=== PATIENT | female | born 1980 | race Caucasian/White ===

== ENCOUNTER → 2019-04-25 11:39 | Outpatient (BNVA) | payer OTHER, SELFPAY | PROVIDERS: Family Provider Registered Nurse; PCP Family Medicine; Visit Provider Nurse Practitioner | DX: J09.X2 Influenza due to identified novel influenza A virus with other respiratory manifestations (principal) | CPT/HCPCS: 87804 ==

== ENCOUNTER 2019-06-11 11:53 | Outpatient (CLI) | payer OTHER, SELFPAY ==
[2019-06-11 12:28] VITALS: BMI 26.2
--- NOTE | 2019-06-11 12:28 | ECG_ITS ---
NAME OF STUDY: TREADMILL STRESS TEST INDICATION: Chest Pain EXERCISE DATA: The patient was exercised by Mehdi protocol. Baseline heart rate was 74 beats per minute. Baseline blood pressure was 130/96 millimeters of mercury. Target heart rate was 179 beats per minute. Maximum heart rate achieved was 160, which was 89 % of the target heart rate. Maximum blood pressure was 187/103 millimeters of mercury. Total exercise time was 6 minutes 57 seconds. Maximum METs achieved was 10.2, maximum VO2 was 35.7. The reason for ending the test was maximum effort achieved. The patient complained of shortness of breath during the stress test, which then resolved at the end of the test. ELECTROCARDIOGRAM: BASELINE: Sinus rhythm, normal axis, no significant ST-T changes at the baseline noted. EXERCISE: At the peak exercise level, No significant ST-T changes suggestive of ischemia noted. RECOVERY: During the recovery period, heart rate dropped appropriately. No significant ST-T changes in the recovery suggestive of ischemia noted. CONCLUSION: 1. Exercise capacity fair . 2. Heart rate response was appropriate. 3. Blood pressure response was appropriate. 4. Symptoms not suggestive of ischemia. 5. Electrocardiogram portion of the stress test was not suggestive of ischemia. Electronically Signed On 06-13-2019 21:46:03 BRICKLAYER by Aimee Malik M.D. [email or web address]
[2019-06-11 12:44] VITALS: BP 167/95; PULSE 100
== END 2019-06-11 11:54 | disposition home or self-care (01) ==
LOC: CDL 11:55
PROVIDERS: Family Provider Registered Nurse; PCP Registered Nurse; Visit Provider Internal Medicine Cardiovascular Disease
DX: R07.9 Chest pain, unspecified (principal)
CPT/HCPCS: 93017

== ENCOUNTER 2019-09-28 08:11 | Outpatient (CLI) | payer OTHER, SELFPAY ==
--- NOTE | 2019-09-28 08:18 | MM_ITS ---
WS: [id number] SCREENING DIGITAL MAMMOGRAM WITH CAD HISTORY: SCREENING COMPARISON: None available. Bilateral CC and MLO views submitted. Computer aided detection analyzed. Breast composition: There are scattered areas of fibroglandular density. No suspicious masses, microc alcifications or architectural distortion. MM/[place] [id number] IMPRESSION: BI-RADS: 1-Negative FOLLOW UP: 1 Year Follow-up
== END 2019-09-28 08:12 | disposition home or self-care (01) ==
LOC: RADSHAW 08:17
PROVIDERS: PCP Registered Nurse; Visit Provider Registered Nurse
DX: Z12.31 Encounter for screening mammogram for malignant neoplasm of breast (principal)
CPT/HCPCS: 77067

== ENCOUNTER 2019-10-07 14:46 | Outpatient (CLI) | payer OTHER, SELFPAY ==
--- NOTE | 2019-10-07 14:53 | XRR_ITS ---
PROCEDURE INFORMATION: Exam: XR Abdomen, 1 View Exam date and time: 10/07/2019 3:02 PM Age: 39 years old Clinical indication: Abdominal pain; Flank; Right; Prior surgery; Surgery date: 6+ months; Surgery type: Gb, hystorectomy, tubal , csection; Patient HX: Pain x2 days RT low back, PT does have HX of kidney stones TECHNIQUE: Imaging protocol: XR of the abdomen. Views: Frontal supine view of the abdomen. 1 View. COMPARISON: No relevant prior studies available. FINDINGS: Gastrointestinal tract: Colonic constipation is present. Organs: Clips are present in the right upper quadrant consistent with prior cholecystectomy. Vasculature: Incidentally noted are benign phleboliths in the pelvis. Bones/joints: There are non-specific somewhat ovoid appearing hyperdensities along the expected course of the right ureter measuring 1.5 mm and 2.7 mm respectively. XR/XR KUB [id number] IMPRESSION: 1. There are non-specific somewhat ovoid appearing hyperdensities along the expected course of the right ureter measuring 1.5 mm and 2.7 mm respectively. Ureteral calculi cannot be excluded. 2. Colonic constipation is present.
== END 2019-10-07 14:47 | disposition home or self-care (01) ==
PROVIDERS: PCP Registered Nurse; Visit Provider Nurse Practitioner
DX: N20.0 Calculus of kidney (principal); K59.00 Constipation, unspecified
CPT/HCPCS: 74018; 81000

== ENCOUNTER → 2019-10-15 14:44 | Outpatient (BNVA) | payer OTHER, SELFPAY | PROVIDERS: PCP Registered Nurse; Visit Provider Registered Nurse | DX: R33.9 Retention of urine, unspecified (principal) | CPT/HCPCS: 81000 ==

== ENCOUNTER → 2019-10-30 14:14 | Outpatient (BNVA) | payer OTHER, SELFPAY | PROVIDERS: PCP Registered Nurse; Visit Provider Urology | DX: R33.9 Retention of urine, unspecified (principal); R39.198 Other difficulties with micturition; Z87.442 Personal history of urinary calculi | CPT/HCPCS: 81001 ==

== ENCOUNTER 2020-01-02 16:26 | Outpatient (CLI) | payer OTHER, SELFPAY ==
--- NOTE | 2020-01-02 18:31 | XR_ITS ---
WS: [id number] Right shoulder, 3 views, 01/02/2020 Clinical Data: shoulder pain Comparison: Right shoulder, 01/10/2010. Findings: No fractures or dislocations are seen. The AC joint is normal. The adjacent right clavicle, right sca pula and ribs are normal. The soft tissues are unremarkable. XR/XR shoulder RT min 2V* [id number] Impression: Negative right shoulder.
== END 2020-01-02 16:27 | disposition home or self-care (01) ==
LOC: RAD 16:30
PROVIDERS: PCP Registered Nurse; Visit Provider Nurse Practitioner Family
DX: M25.511 Pain in right shoulder (principal)
CPT/HCPCS: 73030

== ENCOUNTER 2020-05-14 09:39 | Outpatient (CLI) | payer OTHER, SELFPAY ==
--- NOTE | 2020-05-14 09:30 | XR_ITS ---
WS: [id number] KUB, 05/14/2020 Clinical Data: HX OF KIDNEY STONES Comparison: KUB, 10/07/2019. Findings: No abnormal intraabdominal masses or calcifications are seen. There is no dilatated small bowel or ev idence of obstruction. There are phleboliths in the true pelvis. There is moderate fecal material in the ascending colon and sigmoid colon. XR/XR KUB [id number] Impression: Negative KUB.
== END 2020-05-14 09:40 | disposition home or self-care (01) ==
LOC: RAD 09:47
PROVIDERS: PCP Registered Nurse; Visit Provider Urology
DX: Z87.442 Personal history of urinary calculi (principal)
CPT/HCPCS: 74018; 81003

== ENCOUNTER 2021-05-14 09:35 | Outpatient (CLI) | payer OTHER, SELFPAY ==
--- NOTE | 2021-05-14 09:30 | XR_ITS ---
WS: [id number] Exam: XR KUB [id number] Date/Time of Exam: 05/14/2021 9:41 AM Reason For Exam: HX OF KIDNEY STONES No bowel obstruction or free air. No sign of organ enlargement. 3 mm calcification seen along the rig ht paraspinal region at about the level of L4. Signs of previous tubal ligation. Small nonspecific le ft pelvic calcification. Bony structures are intact. XR/XR KUB [id number] IMPRESSION: 1. No acute abdominal process. 2. 3 mm right paraspinal calcification at the level of the L4. This is nonspeci fic but a ureteral stone might have this appearance. 2 mm left pelvic calcifica tion also noted which is nonspecific in appearance.
== END 2021-05-14 09:36 | disposition home or self-care (01) ==
LOC: RAD 09:39
PROVIDERS: PCP Registered Nurse; Visit Provider Urology
DX: Z87.442 Personal history of urinary calculi (principal)
CPT/HCPCS: 74018; 81003

== ENCOUNTER 2021-07-02 12:15 | Outpatient (CLI) | payer OTHER, SELFPAY ==
--- NOTE | 2021-07-02 12:20 | CT_ITS ---
WS: [id number] CT ABDOMEN PELVIS TECHNIQUE: Noncontrast CT of the abdomen and pelvis with coronal and sagittal reformatted images. CLINICAL INFORMATION: UROLITHIASIS COMPARISON: CT June 27, 2019 DLP: 1119.[address] scans at [facility] use at least one of these dose optimization techniques: automated e xposure control; mA and/or kV adjustment per patient size (includes targeted exams where dose is matc hed to clinical indication); or iterative reconstruction. FINDINGS: Noncontrast liver is normal. Cholecystectomy clips. Mild hepatomegaly. Noncontrast spleen is normal. Small esophageal hiatal hernia. Lung bases are well aerated. Adrenal glands are normal. Noncontrast p ancreas is normal. No hydronephrosis in either kidney. No obstructing or renal or ureteral calculi. N ormal appendix. Normal sigmoid colon. No evidence of high-grade small or large bowel obstruction. Lung bases are well aerated. CT/CT kidney stone [id number] IMPRESSION: 1. No hydronephrosis in either kidney. 2. No obstructing renal or ureteral calculi. 3. Mild hepatomegaly. 4. Prior cholecystectomy. 5. Small esophageal hiatal hernia. 6. No acute abdominal findings.
== END 2021-07-02 12:16 | disposition home or self-care (01) ==
LOC: RAD 12:16
PROVIDERS: PCP Registered Nurse; Visit Provider Urology
DX: N20.9 Urinary calculus, unspecified (principal); R16.0 Hepatomegaly, not elsewhere classified; Z90.49 Acquired absence of other specified parts of digestive tract; K44.9 Diaphragmatic hernia without obstruction or gangrene
CPT/HCPCS: 74176; 81003

== ENCOUNTER → 2021-07-18 13:23 | Outpatient (BNVA) | payer OTHER, SELFPAY | PROVIDERS: PCP Registered Nurse; Visit Provider Nurse Practitioner | DX: S99.929A Unspecified injury of unspecified foot, initial encounter (principal); W22.8XXA Striking against or struck by other objects, initial encounter | CPT/HCPCS: 73630 ==

== ENCOUNTER 2021-08-07 18:10 | Emergency (ER) | payer OTHER, SELFPAY ==
[2021-08-07 18:15] VITALS: BP 177/119; PULSE 75; RESP 16; TEMP 36.4; O2SAT 97; BMI 26.6
--- NOTE | 2021-08-07 18:23 | ED_ITS ---
HPI - Back Pain/Injury General: Chief Complaint: Back Pain/Injury Stated Complaint: Back Pain Time Seen by Provider: 08/07/21 18:20 History of Present Illness: 41-year-old female comes in today with complaints of right low back pain radiating into her right hip. Patient reports yesterday she had that she stepped sideways and felt a pull in her lower back. Pain is worsened throughout the night. Patient appears nontoxic. Patient appears in moderate to severe pain. Patient denies any chronic back pain. Patient reports no fever. Patient reports no fall or injury. Patient reports no loss of bowel or bladder control. Associated symptoms: Deny fever(s) Review of Systems General: Reports: 10 or more systems reviewed and unremarkable except in HPI and below Const: Denies: fever(s) Card: Denies: chest pain Resp: Denies: dyspnea Musc: Reports: back pain Skin/Breast: Denies: rash PFSH ED PFSH: Medical History Anxiety GERD (gastroesophageal reflux disease) History of kidney stones Hypertension Incomplete bladder emptying Labile hypertension Slow urinary stream Urolithiasis Surgical History History of delivery History of cholecystectomy History of hysterectomy S/P tubal ligation Family History Other Cancer Chronic kidney disease (CKD) Hypertension Myocardial infarct Stroke Social History Smoking and tobacco status: current every day smoker Alcohol intake: never Adopted: No Caregiver/support person: No Lives independently: No Household members: spouse Marital status: Current occupational status: employed History of recent travel: No Sexually active: Yes Current gender identity: Female Physical Exam Const: COMMON NORMALS: alert HENMT: COMMON NORMALS: normocephalic HEAD & SCALP: normocephalic MOUTH: Normal oral and palatal mucosa present Neck/C-Spine: COMMON NORMALS: full ROM Resp: COMMON NORMALS: normal respiratory effort Cardio: COMMON NORMALS: regular rate RATE: regular rate Back/Pelvis: LUMBAR SPINE/LOWER BACK: No lumbar spinal tenderness, Yes paraspinal muscle tenderness Lumbar paraspinal muscle tenderness: right and Yes straight leg raise negative bilaterally Extremity: COMMON NORMALS: normal to inspection Neuro: SENSORIUM/ORIENTATION: Yes alert Skin: COMMON NORMALS: no rashes or lesions noted GENERAL SKIN EXAM: no rashes or lesions noted Course Vital Signs: Vital signs: Vital Signs Temperature 97.6 F 08/07/21 18:15 Pulse Rate 75 08/07/21 18:15 Respiratory Rate 16 08/07/21 18:15 Blood Pressure 177/119 08/07/21 18:15 Pulse Oximetry 97 08/07/21 18:15 MDM - Back Pain/Injury Medical Decision Making 41-year-old female comes in today with complaints of right low back pain radiating into the right hip. On exam patient has pain and tenderness in the right lumbar region. Able to do full leg lift with minimal pain. Pulses and sensation of the distal leg intact. The patient has no fever. Patient denied any problems with urinary difficulty or bowel control. Differential diagnosis includes intervertebral disc disease, facet arthropathy, lumbar strain. No cauda equina syndrome symptoms were noted. Exam suggests lumbar strain. Reviewed exam with patient with recommendations for treatment and follow-up. Patient was given an injection of Toradol 30 mg, 60 mg orphenadrine, and 10 mg of dexamethasone IM for pain and inflammation. Patient was given 1 dose of hydrocodone 7-1/2 mg with 325 mg of acetaminophen for pain. Patient was encouraged to use acetaminophen and ibuprofen to help control pain. Patient was written a short prescription for some hydrocodone for breakthrough pain. Patient reported understanding of care plan need for follow-up or return to the ER for worsening symptoms. Discharge Plan Discharge Patient Disposition: Home Clinical Impression: Strain of lumbar region Qualifiers: Encounter type: initial encounter Qualified Code(s): S39.012A - Strain of muscle, fascia and tendon of lower back, initial encounter Condition: Stable Prescriptions: New hydrocodone-acetaminophen 5-325 mg tablet 1 tab PO Q6H PRN (Reason: pain) Qty: 14 0RF ibuprofen 600 mg tablet 600 mg PO Q6H PRN (Reason: pain) Qty: 60 0RF No Action venlafaxine [Effexor XR] 150 mg capsule,extended release 24hr 150 mg PO DAILY 0RF Discharge Orders: Discharge ED (Routine); Ordered 08/07/21 Ordered By: Charbel Huang Referrals: Shai Alvarado FNP [Primary Care Provider] - Discharge Diet: Usual diet Discharge Activity: Increase activity as tolerated Patient Instructions: Low Back Strain (ED), Opioid Safety Activity Restrictions/Additional Instructions: Drink plenty of water with medication. Activity as tolerated. Gentle stretching and range of motion exercises. Use acetaminophen and ibuprofen to control pain. Use hydrocodone for breakthrough pain. Follow-up with primary care in 3 to 5 days for recheck. Return to ER for high fever greater than 100.4, uncontrolled pain, loss of bowel or bladder control. Coding Level of Care Code ED [employer] Operator for Priscila Shankar
[2021-08-07] MEDS: orphenadrine 30 mg/mL Inj 2 mL 60 MG IM (18:45)
[2021-08-07] MEDS: dexamethasone 10 mg/mL INJ IM (18:45)
[2021-08-07] MEDS: HYDROcodone-acetaminophen 7.5-325 mg Tablet 1 TAB PO (18:46)
[2021-08-07] MEDS: ketorolac 30 mg/mL INJ IM (18:46)
== END 2021-08-07 19:06 | disposition home or self-care (01) ==
PROVIDERS: Emergency Provider Nurse Practitioner Family; PCP Registered Nurse
DX: S39.012A Strain of muscle, fascia and tendon of lower back, initial encounter (principal); X58.XXXA Exposure to other specified factors, initial encounter; F17.200 Nicotine dependence, unspecified, uncomplicated
CPT/HCPCS: 96372; 99283; J1100; J1885; J2360

== ENCOUNTER 2021-12-31 12:20 | Outpatient (CLI) | payer OTHER, SELFPAY ==
--- NOTE | 2021-12-31 12:46 | XR_ITS ---
WS: [id number] KUB, AP view, 12/31/2021 Clinical Data: N20.9 - Urinary calculus, unspecified Comparison: KUB, 05/14/2021. Findings: No abnormal intraabdominal masses or calcifications are seen. There is no dilatated small bowel or ev idence of obstruction. There is fecal material in the colon. The bladder is full. There are clips in the right upper quadran t from a cholecystectomy. XR/XR KUB [id number] Impression: Negative KUB.
== END 2021-12-31 12:21 | disposition home or self-care (01) ==
LOC: RAD 12:20
PROVIDERS: PCP Nurse Practitioner Family; Visit Provider Urology
DX: N20.9 Urinary calculus, unspecified (principal); R33.9 Retention of urine, unspecified
CPT/HCPCS: 74018; 81003